=== PATIENT | female | born 1995 | race Caucasian/White ===

== ENCOUNTER 2018-02-07 11:42 | Emergency (ER) | payer OTHER ==
[~2018-02-07] VITALS: Ht 165.1 cm; Wt 71.8 kg
[2018-02-07 11:45] VITALS: BP 95/63
--- NOTE | 2018-02-07 11:55 | NUR ---
PT. BIB MOTHER DUE TO RUQ PAIN X 3 DAYS. PT. STATES " I THOUGHT IT WAS FOOD POISONING BUT WHEN IT DIDNT GO AWAY I DECIDED TO COME IN". 8/10 SHARP PAIN IN RUQ THAT RADIATES TO L SIDE INTERMITTENTLY. DENIES ANY BURNING UPON URINATION OR FREQUENCY. DENIES ANY VOMITING OR DIAHRRHEA. ABD ROUND AND SOFT UPON PALPATION AND TENDER UPON RUQ AND FLANK . PT STATES" I HAVE CONSTIPATION AND I WENT YESTERDAY AND IT WAS FORMED HARD STOOL" YESTERDAY. DENIES ANY BLOOD IN STOOL. PT REPORTS NAUSEA X 3 DAYS. DENIES ANY FEVER OR CHILLS . ER MD NOTIFIED. WILL CONTINUE TO MONITOR. MOTHER AT BEDSIDE AT THIS TIME. SAFETY PRECAUTIONS IMPLEMENTED.
--- NOTE | 2018-02-07 12:34 | NUR ---
ULTRASOUND AT BEDSIDE AT THIS TIME. VSS. WILL CONTINUE TO MONITOR. NO FURTHER REQUESTS AT THIS TIME.
[2018-02-07 12:45] LABS: BASOPHILS % (AUTO) 0.2 % (0.0-2.0); EOSINOPHILS % (AUTO) 0.3 % (0.0-4.0); HEMATOCRIT 39.3 % (36-48); HEMOGLOBIN 13.2 g/dL (12.0-16.0); LYMPHOCYTES # (AUTO) 1.9 K/uL (2.5-16.5); LYMPHOCYTES % (AUTO) 18.9 % (20.5-51.1); MEAN CORPUSCULAR HEMOGLOBIN 30 pg (27-31); MEAN CORPUSCULAR HGB CONC 34 g/dL (33-37); MEAN CORPUSCULAR VOLUME 89.4 fL (80-94); MONOCYTES # (AUTO) 0.6 K/uL (0.8-1.0); MONOCYTES % (AUTO) 5.4 % (1.7-9.3); NEUTROPHILS # (AUTO) 7.7 K/uL (1.8-7.7); NEUTROPHILS % (AUTO) 75.2 % (42.2-75.2); PLATELET COUNT (AUTO) 246 K/uL (140-450); RED CELL DISTRIBUTION WIDTH 12.3 % (11.6-13.7); WHITE BLOOD COUNT (AUTO) 10.2 K/uL (4.8-10.8)
[2018-02-07 13:21] LABS: ALBUMIN 3.5 g/dL (3.4-5.0); ANION GAP 12.3 (8-16); CARBON DIOXIDE 28.6 mmol/L (21-32); CREATININE 0.7 mg/dL (0.6-1.3); POTASSIUM 3.9 mmol/L (3.5-5.1); TOTAL BILIRUBIN 1.1 mg/dL (0.0-1.0)
--- NOTE | 2018-02-07 13:40 | NUR ---
PT. RESTING COMFORTABLY IN BED, RR EVEN AND UNLABORED. VSS. WILL CONTINUE TO MONITOR.
[2018-02-07 14:28] LABS: APPEARANCE,URINE CLEAR (CLEAR); BILIRUBIN,URINE NEGATIVE (NEGATIVE); BLOOD, URINE NEGATIVE (NEGATIVE); COLOR,URINE YELLOW (YELLOW); LEUKOCYTE ESTERASE ,URINE NEGATIVE (NEGATIVE); NITRITE, URINE NEGATIVE (NEGATIVE); UGLUCOSE NEGATIVE (NEGATIVE)
--- NOTE | 2018-02-07 14:46 | NUR ---
DR. LIND AT BEDSIDE AT THIS TIME. HOB ELEVATED AND VSS. WILL CONTINUE TO MONITOR.
[2018-02-07 15:03] VITALS: BP 120/64
--- NOTE | 2018-02-07 15:03 | NUR ---
Patient discharged with v/s stable. Written and verbal after care instructions given and explained. Patient alert, oriented and verbalized understanding of instructions. Ambulatory with steady gait. All questions addressed prior to discharge. ID band removed. Patient advised to follow up with PMD. Rx of ZOFRAN ODT given. Patient educated on indication of medication including possible reaction and side effects. Opportunity to ask questions provided and answered.
== END 2018-02-07 15:03 | disposition home or self-care (01) ==
LOC: MED 11:42
DX: R10.84 Generalized abdominal pain (principal); R19.7 Diarrhea, unspecified; R11.0 Nausea; R50.9 Fever, unspecified; R53.1 Weakness; R63.0 Anorexia
CPT/HCPCS: 36415; 76705; 80053; 81003; 81025; 83690; 85025; 99284; Q0092